=== PATIENT | female | born 1985 | race Caucasian/White ===

== ENCOUNTER 2016-11-09 23:49 | Outpatient (CLI) | payer OTHER ==
[2016-11-10 00:47] LABS: URINE APPEARANCE HAZY; URINE BILIRUBIN NEGATIVE (NEGATIVE); URINE BLOOD 3+ (NEGATIVE); URINE COLOR YELLOW; URINE GLUCOSE (UA) NEGATIVE (NEGATIVE); URINE LEUKOCYTE ESTERASE NEGATIVE (NEGATIVE); URINE NITRITE NEGATIVE (NEGATIVE); URINE PROTEIN 2+ (NEGATIVE); URINE UROBILINOGEN NORMAL (0-1 mg/dl)
[2016-11-10 00:59] LABS: URINE BACTERIA 0; URINE RBC 20-30 /hpf
[2016-11-10 01:39] VITALS: BMI 40.6
== END 2016-11-10 01:35 | disposition home or self-care (01) ==
LOC: FBC 23:49 → FBCOUT 23:49
PROVIDERS: ATTEND Obstetrics & Gynecology
DX: O36.8190 Decreased fetal movements, unspecified trimester, not applicable or unspecified (principal); Z3A.00 Weeks of gestation of pregnancy not specified

== ENCOUNTER 2016-11-10 14:26 | Observation (INO) | payer OTHER ==
[2016-11-10 15:25] LABS: BASO # 0.1 K/mm3 (0.0-0.2); BASO % 0.4 % (0.2-1.0); EOS # 0.1 (0.0-0.5); EOS % 0.5 % (0.9-2.9); HEMATOCRIT 33.9 % (37.0-47.0); HEMOGLOBIN 11.6 gm/l (12.0-16.0); IMM NEUT # 0.2 K/mm3 (0-0.2); IMM NEUT% 2.1 % (0-1); LYMPH # 2.1 (1.0-4.8); LYMPH % 19.1 % (15-45); MEAN CELL VOLUME 93.6 fl (81.0-99.0); MEAN CORPUSCULAR HGB CONC 34.2 g/dl (33.0-37.0); MEAN PLATELET VOLUME 10.5 fl (7.4-10.4); MONO # 0.7 (0.0-0.8); MONO % 6.4 % (4-12); NEUT % 71.5 % (43-75); PLATELET COUNT 186 K/mm3 (130-400); RED CELL DISTRIBUTION WIDTH 13.7 % (11.5-14.5)
[2016-11-10 15:48] LABS: I-STAT CREATININE 0.6 mg/dL (0.6-1.3)
--- NOTE | 2016-11-10 15:51 | HP ---
ANDREWS ESCOBAR DATE OF ADMISSION: November 10, 2016 ADMITTING DIAGNOSIS: Intrauterine at 28 weeks with hypertension. HISTORY: The patient is a 31-year-old 2, para 1, woman with an estimated date of delivery of February 02, 2017 currently at 28 weeks gestation. Her first was complicated by preeclampsia delivering at 38 weeks. This she has done well until last night when she called complaining of decreased movement. She went to labor and delivery where the baby was doing fine and moving but at that point her blood pressure was slightly up, and she had 4+ proteinuria. She was sent home and returned to my office today for followup evaluation. Again her blood pressure is 138/90 and 4+ proteinuria. PAST MEDICAL HISTORY: Has a history of preeclampsia with her first . PAST SURGICAL HISTORY: She has had: 1. Appendectomy. 2. Tonsillectomy. 3. Ovarian cyst removed during laparotomy. CURRENT MEDICATIONS: Vitamins. ALLERGIES: NO KNOWN ALLERGIES. FAMILY HISTORY: Not significant. SOCIAL HISTORY: Patient is , lives with her child and . She is [place] speaking. Does not smoke. Does not use alcohol. REVIEW OF SYSTEMS: Patient denies headache, blurred vision, right upper quadrant pain or dysuria. PHYSICAL EXAMINATION: GENERAL: She is a heavy-set woman weighing 294 pounds. VITAL SIGNS: Blood pressure is 138/90. HEENT: Normal. LUNGS: Clear. HEART: Normal S1 and S2. ABDOMEN: Soft. Fundal height of 36 cm. Good heart tones. EXTREMITIES: She has 2+ edema of her extremities. She has 2 to 3+ patellar reflexes. IMPRESSION: The impression is a patient at 28 weeks with increased blood pressure and significant proteinuria. PLAN: Plan is to admit for evaluation including blood pressures, 24-hour urine and ultrasound.
[2016-11-10 16:32] VITALS: BMI 44.6
--- NOTE | 2016-11-10 16:35 | US ---
OB ultrasound greater than 14 weeks HISTORY: Assess for intrauterine growth retardation. 28 weeks 0 days. Transabdominal obstetric sonography performed. COMPARISON: None. FINDINGS: INTRAUTERINE GESTATION: Single live intrauterine gestation. PRESENTATION: Breech PLACENTA: Right lateral placenta without placenta previa.. CERVICAL LENGTH: Cervix not seen due to acoustic shadowing. AMNIOTIC FLUID VOLUME: WHIT 21.0 cm, towards upper normal limits. CARDIAC ACTIVITY: Present, 153 bpm. Trunk and limb motion is present. MEASUREMENTS: BPD: 7.3cm 29 weeks 3 days, 82nd percentile HC: 27.3cm 29 weeks 6 days, 77th percentile AC: 25.9cm 30 weeks 0 days, 92nd percentile FL: 5.4cm 28 weeks 3 days, 47th percentile SONOGRAPHIC GESTATIONAL AGE: 29 weeks 3 days ESTIMATED WEIGHT: 1393 g, 76th percentile. CI: 79.8%. HC/AC: 1.06. ANATOMIC SURVEY: Fall anatomic survey not performed. The appearance of the stomach, kidneys, and bladder are grossly unremarkable. IMPRESSION: 1. Single live intrauterine gestation in breech orientation, sonographically dating 29 weeks 3 days, as compared to clinical dates of 28 weeks 0 days. Estimated weight at 76th percentile. 2. Right lateral placenta without placenta previa, cervix obscured 3. WHIT at upper normal limits, 21.0 cm. 4. Full anatomic survey not performed. Findings discussed with Tracey of the nursing service on the date of examination at 1631 hours.
[2016-11-10 21:28] VITALS: BP 131/61
[2016-11-10 22:07] LABS: ALB/GLOB RATIO 1.1 (>1.0); ALBUMIN 3.1 gm/dL (3.5-5.7); CALCIUM 9.2 mg/dL (8.6-10.3)
[2016-11-10] MEDS ORDERED: IV START KIT ONE (22:29)
[2016-11-10] MEDS ORDERED: SODIUM CHLORIDE 0.9% FLUSH 10 ML ONE (22:29)
[2016-11-10 22:31] LABS: CREATININE,RANDOM URINE 139 mg/dL
[2016-11-10] MEDS: ACETAMINOPHEN 500 MG TABLET PO PRN (22:33)
[2016-11-10] MEDS: CALCIUM CARBONATE 500 MG TAB.CHEW PO PRN (22:33)
[2016-11-11] MEDS: ACETAMINOPHEN 500 MG TABLET PO PRN (08:38)
[2016-11-11] MEDS: CALCIUM CARBONATE 500 MG TAB.CHEW PO PRN (12:23)
[2016-11-11 15:52] LABS: URINE COLLECTION TIME 24 hr; URINE TOTAL VOLUME 1950 mL
[2016-11-11 16:46] LABS: URINE 24 HOUR TOTAL PROTEIN 4719 mg/24hr (50-100); URINE TOTAL PROTEIN 242 mg/dl
--- NOTE | 2016-11-12 06:05 | DS ---
ANDREWS ESCOBAR DATE OF ADMISSION: November 10, 2016 DATE OF DISCHARGE: November 11, 2016 ADMITTING DIAGNOSES: Intrauterine at 28 weeks with proteinuria. HISTORY OF PRESENT ILLNESS: The patient is a 31-year-old 2, para 1, woman with an estimated date of confinement of February 02, 2017 currently at 28 weeks gestation. Her first was complicated by preeclampsia delivering at 38 weeks. This she has been stable until November 09, 2016 when she complained of decreased movement. She went to labor and delivery, and the baby was doing well but it was noted that she had 4+ proteinuria. In the office on November 10, 2016, her diastolic was 138/90 with 4+ protein, and she was admitted to the hospital. In the hospital, her blood pressures all were in the 130/75 range. Her laboratory blood values were normal including her platelets, hemoglobin and hematocrit, LDH, creatinine of 0.5. A gestational age ultrasound was done which showed a normal baby at 29 weeks. She has had no symptoms, and a 24-hour urine was collected which showed 4700 mg of protein. I consulted with the on-call doctor at [facility] who felt that it was safe to send her home as she was not preeclamptic but that we should do a renal evaluation. She suggested that as an outpatient we get a renal ultrasound, recheck her renal functions and get a nephrology consults. I have informed the patient of all these things, and she will call my office tomorrow to set up the renal ultrasound. . DISCHARGE FOLLOW UP: She will return to see me in the office next week.
== END 2016-11-11 17:40 | disposition home or self-care (01) ==
LOC: FBC 14:26
PROVIDERS: ADMIT Obstetrics & Gynecology; ATTEND Obstetrics & Gynecology
DX: O12.13 Gestational proteinuria, third trimester (principal); Z3A.28 28 weeks gestation of pregnancy
CPT/HCPCS: 85025; 80053; 83615; 84156 ×2; 84550; 36415; 76816; 59025 ×2; 81002 ×2; A9270 ×4; G0379; G0378

== ENCOUNTER 2016-11-16 21:49 | Observation (INO) | payer OTHER ==
[2016-11-16] MEDS ORDERED: HYDROCODONE/ACETAMINOPHEN 5/325MG TABLET PO PRN (22:24)
[2016-11-16] MEDS ORDERED: PUMP TUBING ONE (22:30)
[2016-11-16] MEDS ORDERED: IV START KIT ONE (22:30)
[2016-11-16] MEDS ORDERED: LACTATED RINGERS 1,000 ML ONE (22:30)
[2016-11-16] MEDS: LACTATED RINGERS 1,000 ML IV SCH (22:46)
[2016-11-16 23:32] LABS: HEMATOCRIT 36.5 % (37.0-47.0); HEMOGLOBIN 12.4 gm/l (12.0-16.0); MEAN CELL VOLUME 92.9 fl (81.0-99.0); MEAN CORPUSCULAR HEMOGLOBIN 31.6 pg (27.0-31.0); RED CELL DISTRIBUTION WIDTH 13.8 % (11.5-14.5)
[2016-11-16 23:48] LABS: ALBUMIN 3.2 gm/dL (3.5-5.7); CALCIUM 9.7 mg/dL (8.6-10.3)
[2016-11-17 00:20] LABS: URINE BILIRUBIN NEGATIVE (NEGATIVE); URINE BLOOD 3+ (NEGATIVE); URINE GLUCOSE (UA) NEGATIVE (NEGATIVE); URINE LEUKOCYTE ESTERASE NEGATIVE (NEGATIVE); URINE NITRITE NEGATIVE (NEGATIVE); URINE PROTEIN 2+ (NEGATIVE); URINE UROBILINOGEN NORMAL (0-1 mg/dl)
[2016-11-17 00:23] LABS: URINE APPEARANCE HAZY; URINE COLOR YELLOW
[2016-11-17 00:47] LABS: URINE BACTERIA 0; URINE CASTS 5-7 HYALINE /lpf; URINE CRYSTALS 1+ CA OXALATE /hpf
[2016-11-17] MEDS ORDERED: LACTATED RINGERS 1,000 ML IV SCH (02:45)
[2016-11-17] MEDS: OXYCODONE/ACETAMINOPHEN 5/325 MG TABLET PO PRN ×2 (03:32→17:21)
[2016-11-17 05:21] VITALS: BMI 44.1
[2016-11-17] MEDS: LACTATED RINGERS 1,000 ML IV SCH ×3 (05:28→17:21)
[2016-11-17 06:05] LABS: HEMATOCRIT 32.6 % (37.0-47.0); HEMOGLOBIN 11.2 gm/l (12.0-16.0); MEAN CELL VOLUME 96.2 fl (81.0-99.0); MEAN CORPUSCULAR HGB CONC 34.4 g/dl (33.0-37.0); RED CELL DISTRIBUTION WIDTH 13.8 % (11.5-14.5)
--- NOTE | 2016-11-17 14:17 | HP ---
ANDREWS ESCOBAR DATE OF SCHEDULED SURGERY: November 17, 2016 ADMITTING DIAGNOSIS: Probable kidney stone during . HISTORY: The patient is a 31-year-old 2, para 1, woman with an estimated date of confinement of February 02, 2017 currently at 29 weeks gestation. She was in the hospital last week with unexplained large proteinuria. All her other studies were normal, and she was discharged home. She was doing well until the day of admission when she began developing left flank and lower back pain, described as a tearing sensation which was quite severe. She presented to Labor and Delivery, where she was not in labor. fibronectin was negative, but her white count was slightly elevated and urinalysis showed that she had calcium oxalate crystals in her urine. OB HISTORY: She has had a vaginal delivery in 2004. PAST SURGICAL HISTORY: She has had: 1. Appendectomy. 2. Tonsillectomy. 3. Ovarian cyst removed. ALLERGIES: NONE. MEDICATIONS: 1. Vitamins. 2. Promethazine as needed. FAMILY HISTORY: Negative. SOCIAL HISTORY: Patient is , lives with her and child. She does not smoke, does not use alcohol. REVIEW OF SYSTEMS: The patient denies fever, coughing, diarrhea, constipation. PHYSICAL EXAMINATION: GENERAL: She is a healthy-appearing woman. VITAL SIGNS: Afebrile. Blood pressure is stable. HEENT: Normal. LUNGS: Clear. HEART: Normal S1 and S2. ABDOMEN: She has some mild left costovertebral angle tenderness but has a lot of tenderness in the very lower back area. Abdomen is soft, nontender, no guarding or rebound. Uterus is 30 weeks size. Good heart tones. Nontender. LABS: White count of 13,000. Urinalysis shows crystal oxalate, a few white cells and 4+ red blood cells. IMPRESSION: The impression is a probable kidney stone. She may also have muscle spasms. PLAN: Our plan is to admit for IV hydration, strain her urine. We will get a renal ultrasound.
--- NOTE | 2016-11-17 16:21 | US ---
Exam: Renal ultrasound COMPARISON: CT 06/29/2014 INDICATION: Left lower quadrant and flank pain for one day. . FINDINGS: Renal ultrasound was obtained. Right kidney measures 13.0 cm in length and left kidney measures 14.7 cm in length. There is no hydronephrosis or focal renal mass. No definite renal calculus is identified. Resistive index on the right is 0.65 and on the left is 0.68. Urinary bladder contained 94 mL prevoid. Both ureteral jets were seen. There is no significant postvoid residual. IMPRESSION: No hydronephrosis or other findings identified to explain left flank pain.
[2016-11-17 17:30] VITALS: BP 125/73
== END 2016-11-17 18:25 | disposition home or self-care (01) ==
LOC: FBC 21:49 → FBCOUT 21:49 → INTOOBSV 11-17 01:21 → MS 11-17 01:21
PROVIDERS: ADMIT Obstetrics & Gynecology; ATTEND Obstetrics & Gynecology
DX: O26.833 Pregnancy related renal disease, third trimester (principal); N28.9 Disorder of kidney and ureter, unspecified; Z3A.29 29 weeks gestation of pregnancy; N20.0 Calculus of kidney
CPT/HCPCS: 96360; 96361; 85027 ×2; 80053; 82731; 81001; 36415 ×2; 76770; 59025; 81002; A9270 ×3; J7120 ×3; G0463; G0379; G0378

== ENCOUNTER 2016-12-17 11:14 | Outpatient (CLI) | payer OTHER ==
[2016-12-17] MEDS ORDERED: LACTATED RINGERS 1,000 ML ONE (11:20)
[2016-12-17] MEDS ORDERED: IV START KIT ONE (11:20)
[2016-12-17 11:44] VITALS: BMI 46.3
[2016-12-17] MEDS ORDERED: PENICILLIN G POTASSIUM 5 MMU in NS 0.9% (MINI-BAG PLUS) 100 ML IV ONE (11:46)
[2016-12-17] MEDS ORDERED: BETAMETHASONE ACET 6 MG/ML 5ML VIAL IM ONE (11:47)
[2016-12-17] MEDS ORDERED: NS 0.9% (MINI-BAG PLUS) 100 ML IV ONE (11:49)
[2016-12-17] MEDS ORDERED: PENICILLIN G POTASSIUM 5 MMU VIAL ONE (11:49)
[2016-12-17] MEDS ORDERED: LACTATED RINGERS 1,000 ML IV SCH (12:00)
--- NOTE | 2016-12-17 12:13 | HP ---
Jacqueline Tompkins DATE: 12/17/2016 ADMITTING DIAGNOSIS: Intrauterine at 33 weeks with spontaneous rupture of membranes. HISTORY: The patient is a 31-year-old 2, para 1 woman with an estimated date of confinement of 02/02/2017 making her 33 weeks and 1 day. Her has been complicated by persistent proteinuria and she has consulted with a insulation hoseman and the plan was to watch this throughout the rest of the otherwise, has been uncomplicated. She this morning had a spontaneous rupture of membranes, clear fluid, and presented to labor and delivery where she was found to be grossly ruptured. She has also been rossy every 3 to 5 minutes getting more painful. PAST MEDICAL HISTORY: Proteinuria as listed above. PAST SURGICAL HISTORY: None. ALLERGIES: None. MEDICATIONS: Vitamins. SOCIAL HISTORY: Patient lives with her and child. She does not smoke. Does not use alcohol. Is [place] speaking. REVIEW OF SYSTEMS: Patient denies fever, chills, nausea, vomiting, diarrhea, constipation. PHYSICAL EXAMINATION: GENERAL: She is a heavy set woman. VITAL SIGNS: Stable. Afebrile. HEENT: Normal. LUNGS: Clear. HEART: Normal S1 and S2. ABDOMEN: Soft, term sized uterus, nontender. PELVIC: Cervix is 1 cm long and high. DIAGNOSTICS: Ultrasound shows that baby is a vertex presentation, nitrogen positive, grossly ruptured. IMPRESSION: The patient at 33 weeks with spontaneous rupture of membranes and contractions. PLAN: We are going to admit her here and then transfer to where there is a level III NICU. JOB: [id number]
== END 2016-12-17 12:12 | disposition short-term general hospital (02) ==
LOC: FBCOUT 11:14 → FBC 11:14 → FBCOUT 12:12
PROVIDERS: ATTEND Obstetrics & Gynecology
DX: O60.03 Preterm labor without delivery, third trimester (principal); Z3A.33 33 weeks gestation of pregnancy; O12.13 Gestational proteinuria, third trimester
CPT/HCPCS: 96372; 96365; 96361; 59025; 81002; J0702; J7120; J2540; G0463

== ENCOUNTER 2017-01-22 16:51 | Outpatient (CLI) | payer OTHER | END 2017-01-22 16:52 | disposition home or self-care (01) | LOC: BABIESSH 16:51 | PROVIDERS: ATTEND Obstetrics & Gynecology | DX: Z39.1 Encounter for care and examination of lactating mother (principal) ==